=== PATIENT | male | born 1990 | race Hispanic/Latino ===

== ENCOUNTER 2022-10-10 13:08 | Inpatient (IN) | payer SELFPAY ==
[2022-10-10 14:15] LABS: #Eosinphils 0.3 10x3/uL (0.0-0.5); #Monocytes 0.3 10x3/uL (0.0-1.1); #Neutrophils 3.5 10x3/uL (1.5-8.4); %Basophils 0.4 % (0.0-2.0); %Eosinophils 5.2 % (0.0-6.0); %Lymphocytes 20.9 % (18.0-47.0); %Monocytes 6.3 % (0.0-10.0); %Neutrophils 66.8 % (40.0-75.0); Hemoglobin 8.5 g/dL (13.5-17.5); Mean Corpuscular HGB CONC 35.1 g/dL (32.0-36.0); Mean Corpuscular Hemoglobin 29.8 pg (27.0-33.0); Mean Corpuscular Volume 84.9 fl (81.2-95.1); Mean Platelet Volume 10.8 fl (7.4-10.4); Platelet Count 167 10x3/uL (150-450); RBC Distribution Width 11.9 % (11.5-14.5); Red Blood Cell (RBC) Count 2.85 10x6/uL (4.32-5.72); White Blood Cell (WBC) Count 5.2 10x3/uL (3.5-10.5)
[2022-10-10 14:21] LABS: ALT (SGPT) Less than 6 U/L (8-55); AST (SGOT) 9 U/L (5-34); Alkaline Phosphatase 81 U/L (40-110); Anion Gap 21 mmol/L (10-20); BUN (Urea Nitrogen) 91 mg/dL (8.9-20.6); Bilirubin, Total 0.5 mg/dL (0.2-1.2); CK (CPK) 127 U/L (30-200); Calc. Creatinine Clearance 0 mL/min (70-130); Carbon Dioxide 19 mmol/L (22-29); Chloride 105 mmol/L (98-107); Estimated GFR 7; Globulin 3.5 g/dL (2.4-3.5); Glucose 94 mg/dL (70-105); Magnesium 1.7 mg/dL (1.6-2.6); Potassium 5.5 mmol/L (3.5-5.1); Protein, Total 7.5 g/dL (6.0-8.3); Sodium 139 mmol/L (136-145)
[2022-10-10 14:37] LABS: Calcium 6.9 mg/dL (7.8-10.44)
[2022-10-10] MEDS ORDERED: Sodium Bicarbonate 150 MEQ in Dextrose 5% in Water 1,000 ML IV SCH (15:00)
[2022-10-10] MEDS ORDERED: Ondansetron PF 4 MG/2 ML Vial IVP PRN (16:08)
[2022-10-10] MEDS ORDERED: Ondansetron ODT 4 MG TAB PO PRN (16:08)
[2022-10-10] MEDS ORDERED: Acetaminophen 325 MG TAB PO PRN (16:08)
[2022-10-10 16:57] LABS: Bilirubin Neg (Negative); Blood, Urine 25 (Negative); Clarity Clear (Clear); Glucose, Urine (Dipstick) Normal (Negative); Ketone, Urine Negative (Negative); Leukocyte Negative (Negative); Nitrite Negative (Negative); Protein, Urine (Dipstick) 500 mg/dl (Neg-Trace); Specific Gravity, Urine 1.005 (1.005-1.030); Urobilinogen Normal mg/dL (Less than 2)
[2022-10-10 17:19] LABS: Creatinine, Urine 34.28 mg/dL (63-166)
[2022-10-10 17:20] LABS: Bacteria/HPF Rare-Few HPF (None Seen); Squamous Epithelial 0-3 HPF (0-3); WBC/HPF 0-3 HPF (0-3)
[2022-10-10] MEDS: Heparin 5,000 UNITS/ML VIAL SC SCH (20:53)
[2022-10-11 05:26] LABS: #Eosinphils 0.2 10x3/uL (0.0-0.5); #Monocytes 0.4 10x3/uL (0.0-1.1); #Neutrophils 2.7 10x3/uL (1.5-8.4); %Basophils 0.8 % (0.0-2.0); %Lymphocytes 33.9 % (18.0-47.0); %Monocytes 7.3 % (0.0-10.0); %Neutrophils 53.6 % (40.0-75.0); Hemoglobin 7.6 g/dL (13.5-17.5); Mean Corpuscular HGB CONC 34.9 g/dL (32.0-36.0); Mean Corpuscular Hemoglobin 29.6 pg (27.0-33.0); Mean Corpuscular Volume 84.8 fl (81.2-95.1); Mean Platelet Volume 11.1 fl (7.4-10.4); Platelet Count 157 10x3/uL (150-450); RBC Distribution Width 11.7 % (11.5-14.5); Red Blood Cell (RBC) Count 2.57 10x6/uL (4.32-5.72)
[2022-10-11 05:47] LABS: ALT (SGPT) Less than 6 U/L (8-55); AST (SGOT) 8 U/L (5-34); Albumin 3.3 g/dL (3.5-5.0); Alkaline Phosphatase 62 U/L (40-110); Anion Gap 17 mmol/L (10-20); BUN (Urea Nitrogen) 84 mg/dL (8.9-20.6); Bilirubin, Total 0.5 mg/dL (0.2-1.2); Calc. Creatinine Clearance 9 mL/min (70-130); Carbon Dioxide 23 mmol/L (22-29); Chloride 104 mmol/L (98-107); Estimated GFR 7; Globulin 2.8 g/dL (2.4-3.5); Glucose 78 mg/dL (70-105); Magnesium 1.7 mg/dL (1.6-2.6); Phosphorus 7.2 mg/dL (2.3-4.7); Potassium 4.1 mmol/L (3.5-5.1); Protein, Total 6.1 g/dL (6.0-8.3); Sodium 140 mmol/L (136-145)
[2022-10-11 05:49] LABS: Iron 83 ug/dL (65-175); Iron Binding Capacity, Total 135 mcg/dL (261-462)
[2022-10-11 05:53] LABS: Calcium 6.6 mg/dL (7.8-10.44)
[2022-10-11] MEDS ORDERED: Calcium Gluc 4.6 MEQ/10 ML (100 MG/ML) SLOW IVP SCH (06:00)
[2022-10-11 06:07] LABS: Ferritin 404.07 ng/mL (22-322)
[2022-10-11] MEDS: Heparin 5,000 UNITS/ML VIAL SC SCH ×2 (08:52→21:48)
[2022-10-11] MEDS ORDERED: EPOETIN ALFA-EPBX (ESRD) 10,000 UNIT/ML VIAL SC SCH (11:00)
[2022-10-11] MEDS: Sodium Chloride 0.9% 1,000 ML IV SCH (11:48)
[2022-10-11] MEDS: Calcium Acetate 667 MG CAP PO SCH ×2 (11:48→16:33)
[2022-10-11 12:49] LABS: Hemoglobin A1c 4.6 % (4.0-6.0)
[2022-10-12 05:12] LABS: Hemoglobin 7.9 g/dL (13.5-17.5); Mean Corpuscular HGB CONC 35.3 g/dL (32.0-36.0); Mean Corpuscular Hemoglobin 30.2 pg (27.0-33.0); Mean Corpuscular Volume 85.5 fl (81.2-95.1); Platelet Count 144 10x3/uL (150-450); RBC Distribution Width 11.6 % (11.5-14.5); Red Blood Cell (RBC) Count 2.62 10x6/uL (4.32-5.72); White Blood Cell (WBC) Count 4.9 10x3/uL (3.5-10.5)
[2022-10-12 05:16] LABS: Anion Gap 19 mmol/L (10-20); BUN (Urea Nitrogen) 85 mg/dL (8.9-20.6); Calc. Creatinine Clearance 9 mL/min (70-130); Calcium 7.4 mg/dL (7.8-10.44); Carbon Dioxide 20 mmol/L (22-29); Chloride 104 mmol/L (98-107); Estimated GFR 6; Glucose 83 mg/dL (70-105); Potassium 4.5 mmol/L (3.5-5.1); Sodium 138 mmol/L (136-145)
[2022-10-12] MEDS: Sodium Chloride 0.9% 1,000 ML IV SCH (05:53)
[2022-10-12 07:06] VITALS: BMI 24.0
[2022-10-12] MEDS: Calcitriol 0.25 MCG CAP PO SCH (08:55)
[2022-10-12] MEDS: Calcium Acetate 667 MG CAP PO SCH ×3 (08:55→16:58)
[2022-10-12] MEDS: Heparin 5,000 UNITS/ML VIAL SC SCH ×2 (08:55→21:18)
[2022-10-12] MEDS: Amlodipine 5 MG TAB PO SCH (08:55)
[2022-10-12] MEDS ORDERED: Ergocalciferol 1.25 MG(50,000 UNITS) CAP PO SCH (09:00)
[2022-10-13 06:48] LABS: HBSAg Index 0.16 S/CO (0-0.99); Hep B Surf Ag Non-Reactive S/CO (NonReactive)
[2022-10-13] MEDS: Calcium Acetate 667 MG CAP PO SCH ×3 (08:57→16:08)
[2022-10-13] MEDS: Amlodipine 5 MG TAB PO SCH (08:58)
[2022-10-13] MEDS: Calcitriol 0.25 MCG CAP PO SCH (08:58)
[2022-10-13] MEDS: Heparin 5,000 UNITS/ML VIAL SC SCH ×2 (08:58→21:12)
[2022-10-13] MEDS ORDERED: Epoetin (ESRD) 10,000 UNITS/ML VIAL IVP PRN (09:36)
[2022-10-13] MEDS ORDERED: Tuberculin PPD 0.1 ML VIAL I-DERMAL SCH (10:00)
[2022-10-13 13:56] LABS: HBSAB Concentration Less than 8.00 mIU/mL; Hep B Core Total Ab Non-Reactive (NonReactive); Hep B Core Total Index 0.12 S/CO (0-0.79); Hep B Surf AB Non-Reactive (NonReactive); Hep C IgG Ab Non-Reactive (NonReactive); Hep C Index 0.11 S/CO (0-0.79)
[2022-10-13 15:14] LABS: Kappa Lambda Light Chain Ratio 1.9 (0.26-1.65); Kappa Light Chains 130.9 mg/L (3.3-19.4); Lambda Light Chain 68.9 mg/L (5.7-26.3)
[2022-10-14 06:07] LABS: PTT 25.6 sec (22.0-33.0); Prothrombin Time 10.5 sec (9.5-12.1)
[2022-10-14 06:09] LABS: Anion Gap 17 mmol/L (10-20); BUN (Urea Nitrogen) 91 mg/dL (8.9-20.6); Calc. Creatinine Clearance 8 mL/min (70-130); Calcium 7.7 mg/dL (7.8-10.44); Carbon Dioxide 20 mmol/L (22-29); Chloride 107 mmol/L (98-107); Estimated GFR 6; Glucose 82 mg/dL (70-105); Potassium 4.8 mmol/L (3.5-5.1); Sodium 139 mmol/L (136-145)
[2022-10-14] MEDS ORDERED: EPINEPHrine 1 MG/ML AMP ONE (06:41)
[2022-10-14] MEDS ORDERED: Bupivacaine 0.25% HCL 30 ML VIAL ONE (06:41)
[2022-10-14] MEDS ORDERED: PROPOFOL 20 ML ONE (07:14)
[2022-10-14] MEDS ORDERED: Fentanyl 100 MCG/2 ML VIAL ONE (07:14)
[2022-10-14] MEDS ORDERED: Lidocaine 1% PF 5 ML VIAL ONE (07:15)
[2022-10-14] MEDS ORDERED: CEFAZOLIN 2 GM VIAL ONE (08:11)
[2022-10-14] MEDS ORDERED: Dexamethasone 20 MG/5 ML VIAL ONE (08:40)
[2022-10-14] MEDS ORDERED: Ondansetron PF 4 MG/2 ML Vial ONE (08:40)
[2022-10-14] MEDS: Calcitriol 0.25 MCG CAP PO SCH (08:50)
[2022-10-14] MEDS: Calcium Acetate 667 MG CAP PO SCH ×3 (08:50→16:58)
[2022-10-14] MEDS: Amlodipine 5 MG TAB PO SCH (08:50)
[2022-10-14] MEDS: Heparin 5,000 UNITS/ML VIAL SC SCH ×2 (08:51→20:44)
[2022-10-14 14:06] LABS: ANA Symphony (Qualitative) Negative (Negative); ANA Symphony (Quantitative) 0.3 Ratio (< 0.7 Negative); dsDNA IgG Antibody 1.1 IU/mL (<10 Negative)
[2022-10-15 06:59] LABS: Mean Corpuscular HGB CONC 35.2 g/dL (32.0-36.0); Mean Corpuscular Hemoglobin 29.4 pg (27.0-33.0); Mean Corpuscular Volume 83.7 fl (81.2-95.1); Platelet Count 179 10x3/uL (150-450); RBC Distribution Width 11.9 % (11.5-14.5); Red Blood Cell (RBC) Count 3.06 10x6/uL (4.32-5.72); White Blood Cell (WBC) Count 6.4 10x3/uL (3.5-10.5)
[2022-10-15 07:09] LABS: Anion Gap 19 mmol/L (10-20); BUN (Urea Nitrogen) 71 mg/dL (8.9-20.6); Calc. Creatinine Clearance 9 mL/min (70-130); Calcium 8.6 mg/dL (7.8-10.44); Carbon Dioxide 21 mmol/L (22-29); Chloride 102 mmol/L (98-107); Estimated GFR 7; Glucose 99 mg/dL (70-105); Potassium 4.3 mmol/L (3.5-5.1); Sodium 138 mmol/L (136-145)
[2022-10-15] MEDS ORDERED: READ PPD TEST SITE PO SCH (09:00)
[2022-10-15] MEDS: Calcium Acetate 667 MG CAP PO SCH ×3 (14:57→19:27)
[2022-10-15] MEDS: Calcitriol 0.25 MCG CAP PO SCH (14:58)
[2022-10-15] MEDS: Amlodipine 5 MG TAB PO SCH (14:58)
[2022-10-15] MEDS: Heparin 5,000 UNITS/ML VIAL SC SCH ×2 (14:58→21:59)
[2022-10-15 22:59] VITALS: BP 143/83; TEMP 98.6
[2022-10-16 15:13] LABS: Albumin 3.1 g/dL (2.9-4.4); Alpha 1 0.2 g/dL (0.0-0.4); Alpha 2 0.8 g/dL (0.4-1.0); Beta 0.8 g/dL (0.7-1.3); Gamma 1.2 g/dL (0.4-1.8); Globulin, Total 3.1 g/dL (2.2-3.9); M-Spike Not Observed g/dL (Not Observed)
[2022-10-17 16:13] LABS: Albumin-Ur 49.8 % (.); Alpha 1 - Ur 7.6 % (.); Alpha 2 - Ur 11.8 % (.); Beta-Ur 15.4 % (.); Gamma-Ur 15.4 % (.); M-Spike,% Not Observed % (Not Observed); Protein, Urine 316.7 mg/dL (Not Estab.)
[2022-10-18 12:09] LABS: Cytoplasmic (C-ANCA) <1:20 titer (Neg:<1:20); Myeloperoxidase AutoAbs <0.2 units (0.0-0.9); Perinuclear (P-ANCA) <1:20 titer (Neg:<1:20); Proteinase-3 AutoAbs Less than 0.2 units (0.0-0.9)
== END 2022-10-15 22:15 | disposition home or self-care (01) | DRG 683 ==
LOC: CSHERS 13:08 → INTOOBSV 15:14 → CSHTELE 15:14 → OBSVTOIN 10-13 08:05
PROVIDERS: ADMIT Internal Medicine; ATTEND Internal Medicine
PROC: 5A1D70Z Performance of Urinary Filtration, Intermittent, Less than 6 Hours Per Day (ICD-10-PCS; principal; 2022-10-14)
PROC: 02HV33Z Insertion of Infusion Device into Superior Vena Cava, Percutaneous Approach (ICD-10-PCS; 2022-10-14)
PROC: B5181ZA Fluoroscopy of Superior Vena Cava using Low Osmolar Contrast, Guidance (ICD-10-PCS; 2022-10-14)
DX: N17.9 Acute kidney failure, unspecified (principal); E87.20 Acidosis, unspecified; N26.1 Atrophy of kidney (terminal); N18.6 End stage renal disease; F41.9 Anxiety disorder, unspecified; E87.5 Hyperkalemia; E83.51 Hypocalcemia; D63.1 Anemia in chronic kidney disease; E83.39 Other disorders of phosphorus metabolism; Z83.3 Family history of diabetes mellitus
CPT/HCPCS: 36415; 71045; 76770; 80048; 80053; 81003; 81015; 82306; 82550; 82570; 82607; 82728; 83036; 83516; 83540; 83550; 83735; 83883; 83970; 84100; 84155; 84156; 84165; 84166; 85025; 85027; 85610; 85730; 86037; 86038; 86225; 86580; 86704; 86850; 86900; 86901; 87040; 87340; 90935; 93005; 93010; 94760; 94762; 96361; 96365; 96372; 96375; C1752; G0257; G0378; J0171; J0610; J1100; J1642; J1644; J2405; J2704; J3010; J7050; J7070; Q5105; S0020; U0003; U0005